=== PATIENT | male | born 1935 | race Caucasian/White ===

== ENCOUNTER 2023-12-15 14:15 | Emergency (ER) | payer OTHER, SELFPAY ==
[2023-12-15 14:21] VITALS: BP 157/61
[2023-12-15 14:39] LABS: % Basophils 0.5 % (0-2); % Eosinophils 1.1 % (0-6); % Immature Granulocytes 0.1 % (0-0.5); % Lymphocytes 29.2 % (20.5-51.1); % Monocytes 7.9 % (1.7-9.3); % Neutrophils 61.2 % (42.2-75.2); Absolute Eosinophils 0.1 10^3/uL (0-0.7); Absolute Lymphocytes 2.4 10^3/uL (1.2-3.4); Absolute Monocytes 0.7 10^3/uL (0.1-0.6); Hematocrit 39.3 % (39.0-52.0); Hemoglobin 13.5 g/dL (13.0-18.0); Mean Corp Hgb Conc. 34.4 g/dL (33.0-37.0); Mean Corpuscular Hgb 31.5 pg (27.0-31.0); Mean Corpuscular Volume 91.8 fL (80.0-94.0); Mean Platelet Volume 9.4 fL (7.4-10.4); Nucleated Red Blood Cells % 0 % (-); Platelet Count 176 10^3/uL (130-400); Red Blood Cell Count 4.28 10^6/uL (4.70-6.10); Red Cell Dist. Width 13.4 % (11.5-14.5); White Blood Cell Count 8.2 10^3/uL (4.8-10.8)
[2023-12-15 14:55] LABS: ALT (SGPT) 17 U/L (0-50); AST (SGOT) 28 U/L (17-59); Albumin 3.7 g/dl (3.5-5.0); Alkaline Phosphatase 74 U/L (38-126); Blood Urea Nitrogen 16 mg/dl (9-20); Calcium 9.2 mg/dl (8.4-10.2); Carbon Dioxide 33 mmol/L (22-30); Chloride 103 mmol/L (98-107); Glucose 90 mg/dl (70-99); Potassium 4.4 mmol/L (3.5-5.1); Sodium 140 mmol/L (135-145); Total Bilirubin 0.8 mg/dl (0.2-1.3); Total Protein 6.2 g/dl (6.3-8.2); eGFR > 60.00
[2023-12-15] MEDS: NSS 500 IV (15:59)
[2023-12-15 16:00] VITALS: BP 171/63
[2023-12-15 16:34] LABS: Troponin I < 0.012 ng/ml
[2023-12-15 17:00] VITALS: BP 157/70
[2023-12-15 17:16] LABS: TSH Reflex To Free T4 0.93 uIU/ml (0.47-4.68)
--- NOTE | 2023-12-15 17:28 | ED.GENMED ---
History of Present Illness
General
Chief Complaint: Blood Pressure Problem
Source: patient and family
Exam Limitations: none
Time Seen by Provider: 12/15/23 15:37
Travel History
Have you had any contact with someone who has COVID-19?: No
Do you have any symptoms of coronavirus? Fever > 100 degrees, chills, cough, shortness of breath, sore throat, loss of taste or smell, muscle aches, or headache?: No
History of Present Illness
History of Present Illness:
88-year-old male significant tiredness and fatigue progressive over months. Worse the last week to 10 days. Family was concerned because his heart rate seems slow and had a couple irregular beats today. Denies chest pain shortness of breath fever
chills ache headache or any other focal symptoms.
Past History
Past History
ED Past Medical History: HTN, Other (rosacea) and Other (Known left bundle branch block)
ED Past Surgical History: None
Social History
Tobacco: Non-smoker
Alcohol: None
Drug: None
Personal:
Living: with family
Phy Exam
Physical Exam
Physical Exam:
GENERAL: Alert and oriented in no apparent distress
EYE: Orbits normal.
NECK: Supple no thyroid palpable.
ENT: Pharynx without erythema
CARDIAC: Minimally bradycardic and regular.
LUNGS: Clear breath sounds,normal
ABDOMEN: Soft, without focal tenderness or distention
NEUROLOGICAL: Alert and oriented , grossly non-focal
SKIN: Warm and dry, no rash or lesion, no discoloration, skin intact.
MUSCULOSKELETAL: No edema,no deformity.Good color
PSYCH: Normal and appropriate interaction.
Course
Orders/Labs/Results
Orders:
Orders
12/15/23 14:23
Electrocardiogram (*1) Urgent
Reason for Study: Bradycardia / Tachycardia
EKG- Treatment ONCE
12/15/23 14:33
Complete Blood Count/With Diff Urgent
Comprehensive Metabolic Panel Urgent
TSH Reflex To Free T4 Urgent
Comment: add-on
12/15/23 15:50
Add On- LAB Urgent
Tests Added?: tsh reflex t4
0.9% Sodium Chloride 500 ml [Nss] 500 ml IV BOLUS
12/15/23 15:53
Troponin I Urgent
Abnormal Lab Results
12/15/23
14:33
RBC 4.28 L 10^6/uL
(4.70-6.10)
MCH 31.5 H pg
(27.0-31.0)
Absolute Monos (auto) 0.7 H 10^3/uL
(0.1-0.6)
Carbon Dioxide 33 H mmol/L
(22-30)
Total Protein 6.2 L g/dl
(6.3-8.2)
12/15/23 14:33
12/15/23 14:33
Vital Signs
Initial and Last Documented VS:
Initial Vital Signs
Temp Pulse Resp BP Pulse Ox
98.0 F 55 16 157/61 98
12/15/23 14:21 12/15/23 14:21 12/15/23 14:21 12/15/23 14:21 12/15/23 14:21
Last Documented Vital Signs
Temp Pulse Resp BP Pulse Ox
98.0 F 63 16 153/84 98
12/15/23 14:21 12/15/23 17:53 12/15/23 17:53 12/15/23 17:53 12/15/23 17:53
*EKG
Interpreted by ED Provider?: Yes
Comparison EKG: no comparison EKG present
Heart Rate: 61
Rate: normal
Rhythm: sinus
[place]: normal axis
Interval: normal interval
QRS Pattern: left bundle branch block
Ischemia: non-specific ST changes
*[employer] Interpretation
Rate: normal
Interpretation: normal
Heart Rate: 62
Rhythm: sinus and PVC's
*Critical Care Note
Total Time (30-74mins, 75-104mins- exclusive of procedures): Not Applicable
Update Note
Update Note:
Patient has remained medically stable and nontoxic. Occasional PVCs which is likely what his daughter was feeling. No signs of any unusual arrhythmias. No pauses. Stable vital signs. Stable exam. No indication for admission. We will await
urine prior to discharge.
ED Attending Note
-
Portions of this chart may have been created with voice recognition software.� Occasional wrong word or��sound alike� substitutions may have occurred due to the inherent limitations of voice recognition software.
Discharge Plan
Departure
Patient Disposition: Home (Routine Discharge)
Date of Disposition: 12/15/23
Time of Disposition: 17:45
Patient with high blood pressure during this ER visit?: Yes
Discharge Problem:
General fatigue and weakness
Instructions: Ventricular premature beats, Fatigue (DC), Generalized Weakness (DC), BLOOD PRESSURE
Prescriptions:
No Action
enalapril maleate 10 MG tablet
20 mg PO DAILY
lovastatin 20 MG tablet
20 mg PO DAILY
doxycycline hyclate 20 MG tablet
20 mg PO BID
carvedilol phosphate [Coreg CR] 20 MG capsule, ER multiphase 24 hr
20 mg PO DAILY
levothyroxine 50 MCG capsule
50 mcg PO DAILY
sulfamethoxazole-trimethoprim 1 TABLET tablet
1 tab PO BID 7 Days Qty: 14 0RF
metronidazole 500 MG tablet
500 mg PO TID 7 Days Qty: 21 0RF
Referrals:
Danette Walsh MD [Family Provider] - Follow up in 2-3 days
La Flowers MD [Active] - Next open appointment
Interventions
Interventions:
*Risk Screen - Suicide Last Done: 12/15/23 16:01
*General Assessment Last Done: 12/15/23 16:01
*Neglect/Abuse Screening Last Done: 12/15/23 16:01
ED- Fall Risk Assessment Last Done: 12/15/23 17:53
*ED COVID-19 Vaccine History Last Done: 12/15/23 14:21
*Nursing Disposition Last Done: 12/15/23 17:53
ED- Cardiac Assessment Last Done: 12/15/23 16:01
ED- Neurological Assessment Last Done: 12/15/23 16:01
ED- Pulmonary Assessment Last Done: 12/15/23 16:01
Discharge Date and Time
Discharge Date/Time: 12/15/23 17:54
[2023-12-15 17:53] VITALS: BP 153/84
== END 2023-12-15 17:54 | disposition home or self-care (01) ==
LOC: EMR 14:15
PROVIDERS: EMERGENCY PHYSICIAN Emergency Medicine; FAMILY PHYSICIAN Family Medicine
DX: R53.83 Other fatigue (principal); R53.1 Weakness; I10 Essential (primary) hypertension; I44.7 Left bundle-branch block, unspecified
CPT/HCPCS: 99283; 96360; 80053; 84443; 84484; 85025; 93005

== ENCOUNTER → 2024-01-10 14:55 | Outpatient (REF) | payer OTHER, SELFPAY | LOC: RCS 14:55 | PROVIDERS: ATTENDING PHYSICIAN Internal Medicine Interventional Cardiology; FAMILY PHYSICIAN Family Medicine | DX: I10 Essential (primary) hypertension (principal); I49.3 Ventricular premature depolarization | CPT/HCPCS: 93306 ==